=== PATIENT | male | born 1960 | race Caucasian/White ===

== ENCOUNTER 2017-05-25 23:09 | Inpatient (IN) | payer MEDICARE, MEDICAID ==
[~2017-05-25] VITALS: Ht 182.9 cm; Wt 112.3 kg
[~2017-05-25 23:09] MED LIST: BENZ1TAB10 PO
[2017-05-25 23:27] LABS: GLUCOSE,POINT OF CARE 118 MG/DL (70-110)
[2017-05-26] VITALS (7 sets, daily range): BP systolic 137–161; BP diastolic 77–92
[2017-05-26] LABS: BASOPHILS % (AUTO) 0.4 % (0.0-2.0); EOSINOPHILS % (AUTO) 0.8 % (1.0-6.0); HEMATOCRIT 42.5 % (41-53); HEMOGLOBIN 14.7 g/dL (13.5-17.5); LYMPHOCYTES # (AUTO) 1.6 K/uL (1.0-4.8); LYMPHOCYTES % (AUTO) 13.5 % (22.0-44.0); MEAN CORPUSCULAR HEMOGLOBIN 32.5 pg (26.0-34.0); MEAN CORPUSCULAR HGB CONC 34.6 G/dL (31.0-37.0); MEAN CORPUSCULAR VOLUME 94 fL (80-100); MONOCYTES # (AUTO) 0.8 K/uL (0.1-1.0); MONOCYTES % (AUTO) 6.4 % (2.0-9.0); NEUTROPHILS # (AUTO) 9.5 K/uL (1.8-7.7); NEUTROPHILS % (AUTO) 78.9 % (40.0-70.0); PLATELET COUNT (AUTO) 257 K/uL (150-450); RED BLOOD CELL COUNT(AUTO) 4.52 MIL/uL (4.50-5.90); RED CELL DISTRIBUTION WIDTH 13.3 % (11.5-14.5)
[2017-05-26 00:11] LABS: PROTHROMBIN TIME 10.7 SEC (9.4-11.6)
[2017-05-26 00:17] LABS: ANION GAP 11 mmol/L (8-16); CALCIUM, TOTAL 8.9 mg/dL (8.8-10.5); CARBON DIOXIDE 26 mmol/L (22-29); CHLORIDE 98 mmol/L (98-107); CREATININE 0.81 mg/dL (0.60-1.30); GLOMERULAR FILTR. RATE CALC > 60 mL/min (>60); POTASSIUM 4.1 mmol/L (3.5-5.1); SODIUM SERUM 135 mmol/L (136-145); UREA NITROGEN, BLOOD 8 mg/dL (7-18)
[2017-05-26 00:20] LABS: B-TYPE NATRIURETIC PEPTIDE 14 pg/mL (0-100)
[2017-05-26] MEDS ORDERED: 0.9% SODIUM CHLORIDE 10 ML SYRINGE IVP PRN (00:30)
[2017-05-26] MEDS ORDERED: ONDANSETRON HCL 4 MG/2 ML VIAL IVP PRN ×2 (00:30→12:15)
[2017-05-26] MEDS ORDERED: ACETAMINOPHEN 325 MG TABLET PO PRN ×2 (00:30→12:15)
[2017-05-26 00:42] LABS: ALANINE AMINOTRANSFERASE 25 U/L (12-78); ALBUMIN 3.9 g/dL (3.4-5.0); ASPARTATE AMINOTRANSFERASE 16 U/L (15-37); BILIRUBIN,TOTAL 0.4 mg/dL (0.1-1.0); CREATINE KINASE MB 1.1 ng/mL (0-5); CREATINE KINASE, TOTAL 81 U/L (39-308); TOTAL PROTEIN, SERUM 7.1 g/dL (6.4-8.2)
[2017-05-26] MEDS ORDERED: LORazepam 2 MG TABLET PO ONE (00:45)
[2017-05-26 01:57] LABS: ADD UA MICROSCOPIC NO; APPEARANCE,URINE CLEAR (CLEAR); GLUCOSE, URINE (UA) NEGATIVE (NEGATIVE); KETONES,URINE NEGATIVE (NEGATIVE); LEUKOCYTE ESTERASE ,URINE NEGATIVE (NEGATIVE); OCCULT BLOOD,URINE NEGATIVE (NEGATIVE); PH,URINE 6.5 (5.0-8.0); PROTEIN,URINE NEGATIVE (NEGATIVE)
[2017-05-26] MEDS: NITROGLYCERIN 2% (1 GM=INCH) PACKET TP SCH ×3 (04:00→12:38)
[2017-05-26] MEDS ORDERED: NITROGLYCERIN 2% (1 GM=INCH) PACKET TP ONE (04:00)
[2017-05-26] MEDS ORDERED: DOBUTamine HCL/D5W 500 MG/250 ML IV BAG [STRESS LAB ONLY] IV ONE (12:15)
[2017-05-26] MEDS ORDERED: NITROGLYCERIN 2% (1 GM=INCH) PACKET TP PRN (12:15)
[2017-05-26] MEDS: OXYGEN THERAPY IH SCH ×2 (12:15→20:00)
[2017-05-26] MEDS: BENZTROPINE MESYLATE 1 MG TABLET PO SCH ×2 (15:41→20:56)
[2017-05-26] MEDS: HEPARIN SODIUM,PORCINE 5,000 UNITS/ML VIAL SQ SCH (15:41)
[2017-05-27] VITALS (7 sets, daily range): BP systolic 131–156; BP diastolic 67–90
[2017-05-27] MEDS: HEPARIN SODIUM,PORCINE 5,000 UNITS/ML VIAL SQ SCH ×3 (01:25→16:07)
[2017-05-27 06:40] LABS: ALANINE AMINOTRANSFERASE 26 U/L (12-78); ALBUMIN 3.5 g/dL (3.4-5.0); ANION GAP 8 mmol/L (8-16); ASPARTATE AMINOTRANSFERASE 24 U/L (15-37); BILIRUBIN,TOTAL 0.5 mg/dL (0.1-1.0); CALCIUM, TOTAL 9.2 mg/dL (8.8-10.5); CARBON DIOXIDE 26 mmol/L (22-29); CHLORIDE 102 mmol/L (98-107); CHOL/HDL RATIO 2.9 (4.2-7.3); CREATININE 0.71 mg/dL (0.60-1.30); GLOMERULAR FILTR. RATE CALC > 60 mL/min (>60); POTASSIUM 4.3 mmol/L (3.5-5.1); SODIUM SERUM 136 mmol/L (136-145); TOTAL PROTEIN, SERUM 6.7 g/dL (6.4-8.2); UREA NITROGEN, BLOOD 9 mg/dL (7-18)
[2017-05-27 06:43] LABS: BASOPHILS % (AUTO) 0.4 % (0.0-2.0); EOSINOPHILS % (AUTO) 1.4 % (1.0-6.0); HEMATOCRIT 43.1 % (41-53); HEMOGLOBIN 14.9 g/dL (13.5-17.5); LYMPHOCYTES # (AUTO) 2.4 K/uL (1.0-4.8); LYMPHOCYTES % (AUTO) 27.1 % (22.0-44.0); MEAN CORPUSCULAR HEMOGLOBIN 32.4 pg (26.0-34.0); MEAN CORPUSCULAR HGB CONC 34.5 G/dL (31.0-37.0); MEAN CORPUSCULAR VOLUME 94 fL (80-100); MONOCYTES % (AUTO) 11.5 % (2.0-9.0); NEUTROPHILS # (AUTO) 5.3 K/uL (1.8-7.7); NEUTROPHILS % (AUTO) 59.6 % (40.0-70.0); PLATELET COUNT (AUTO) 243 K/uL (150-450); RED CELL DISTRIBUTION WIDTH 13.8 % (11.5-14.5); WHITE BLOOD COUNT (AUTO) 8.9 K/uL (4.5-11.0)
[2017-05-27] MEDS ORDERED: ASPIRIN 81 MG CHEWABLE TABLET PO SCH (09:00)
[2017-05-27] MEDS ORDERED: AmLODIPine BESYLATE 10 MG TABLET PO SCH (09:00)
[2017-05-27] MEDS ORDERED: SESTAMIBI TC99M/UD ISOTOPE 1 EA INJ INJ ONE (09:30)
[2017-05-27] MEDS ORDERED: REGADENOSON 0.4 MG/5 ML PF SYRINGE IVP ONE ×2 (09:33→18:44)
[2017-05-27] MEDS: OXYGEN THERAPY IH SCH (10:03)
[2017-05-27] MEDS: BENZTROPINE MESYLATE 1 MG TABLET PO SCH ×2 (10:03→16:07)
[2017-05-27] MEDS ORDERED: AMLO-512 PO (14:31)
[2017-05-27] MEDS ORDERED: ASPI-1093 PO (14:31)
== END 2017-05-27 18:45 | disposition home or self-care (01) | DRG 313 ==
LOC: EMS 23:11 → 5N 05-26 01:28
PROVIDERS: ADMIT Family Medicine; ATTEND Family Medicine
DX: R07.89 Other chest pain (principal); F20.9 Schizophrenia, unspecified; J44.9 Chronic obstructive pulmonary disease, unspecified; F41.9 Anxiety disorder, unspecified; I10 Essential (primary) hypertension
CPT/HCPCS: 78452; 82962; 83735; 93005; 93017; 93306; 99285; A9500; J1644; J2785

== ENCOUNTER 2020-02-21 03:55 | Emergency (ER) | payer MEDICARE, MEDICAID ==
[~2020-02-21] VITALS: Ht 182.9 cm; Wt 109.1 kg
[~2020-02-21 03:55] MED LIST changes: +AMLO10TA7 PO; +ASPI-1111 PO
[2020-02-21] MEDS ORDERED: VALS80TA2 PO (04:19)
[2020-02-21] MEDS ORDERED: OLAN7.5T2 PO (04:19)
[2020-02-21] MEDS ORDERED: HALO10 PO (04:19)
[2020-02-21 04:51] LABS: ANION GAP 10 mmol/L (8-16); BASOPHILS % (AUTO) 0.2 % (0.0-2.0); CALCIUM, TOTAL 8.8 mg/dL (8.8-10.5); CARBON DIOXIDE 26 mmol/L (22-29); CHLORIDE 99 mmol/L (98-107); CREATININE 0.73 mg/dL (0.60-1.30); EOSINOPHILS % (AUTO) 0.8 % (1.0-6.0); GLOMERULAR FILTR. RATE CALC > 60 mL/min (>60); GLUCOSE,RANDOM 126 mg/dL (70-110); HEMATOCRIT 44.8 % (41-53); HEMOGLOBIN 15.2 g/dL (13.5-17.5); LYMPHOCYTES # (AUTO) 2.1 K/uL (1.0-4.8); LYMPHOCYTES % (AUTO) 18.3 % (22.0-44.0); MEAN CORPUSCULAR HEMOGLOBIN 32.5 pg (26.0-34.0); MEAN CORPUSCULAR HGB CONC 33.9 G/dL (31.0-37.0); MEAN CORPUSCULAR VOLUME 96 fL (80-100); MONOCYTES % (AUTO) 8.5 % (2.0-9.0); NEUTROPHILS # (AUTO) 8.3 K/uL (1.8-7.7); NEUTROPHILS % (AUTO) 72.2 % (40.0-70.0); PLATELET COUNT (AUTO) 225 K/uL (150-450); POTASSIUM 4.1 mmol/L (3.5-5.1); RED BLOOD CELL COUNT(AUTO) 4.67 MIL/uL (4.50-5.90); SODIUM SERUM 135 mmol/L (136-145); UREA NITROGEN, BLOOD 8 mg/dL (7-18)
[2020-02-21 04:56] LABS: ALANINE AMINOTRANSFERASE 30 U/L (12-78); ALBUMIN 3.8 g/dL (3.4-5.0); ALKALINE PHOSPHATASE 76 U/L (46-116); ASPARTATE AMINOTRANSFERASE 16 U/L (15-37); BILIRUBIN,TOTAL 0.5 mg/dL (0.1-1.0)
[2020-02-21 05:11] LABS: TOTAL PROTEIN, SERUM 7.1 g/dL (6.4-8.2)
[2020-02-21 05:13] LABS: AMPHET/METH SCREEN,URINE NEGATIVE (NEGATIVE); BARBITURATE SCREEN, URINE NEGATIVE (NEGATIVE); BENZODIAZEPINES SCREEN,URINE NEGATIVE (NEGATIVE); CANNABINOID SCREEN,URINE NEGATIVE (NEGATIVE); COCAINE SCREEN,URINE NEGATIVE (NEGATIVE); METHADONE SCREEN, URINE NEGATIVE (NEGATIVE); OPIATE SCREEN,URINE NEGATIVE (NEGATIVE)
[2020-02-21 05:14] LABS: PHENCYCLIDINE SCREEN,URINE NEGATIVE (NEGATIVE)
[2020-02-21 06:30] VITALS: BP 167/72
== END 2020-02-21 06:50 | disposition home or self-care (01) ==
LOC: EMS 03:56
DX: J02.9 Acute pharyngitis, unspecified (principal); F20.9 Schizophrenia, unspecified; F17.210 Nicotine dependence, cigarettes, uncomplicated; I10 Essential (primary) hypertension
CPT/HCPCS: 36415; 70360; 70491; 74022; 80053; 80307; 85025; 99285; 99406; G0480

== ENCOUNTER 2020-06-08 10:27 | Emergency (ER) | payer MEDICARE, MEDICAID ==
[~2020-06-08] VITALS: Ht 182.9 cm; Wt 101.8 kg
[~2020-06-08 10:27] MED LIST changes: -AMLO10TA7 PO; -ASPI-1111 PO; -BENZ1TAB10 PO; +HALO10 PO; +OLAN7.5T2 PO; +VALS80TA2 PO
[2020-06-08 10:55] LABS: BASOPHILS % (AUTO) 0.4 % (0.0-2.0); EOSINOPHILS % (AUTO) 0.1 % (1.0-6.0); HEMATOCRIT 41.1 % (41-53); HEMOGLOBIN 14.5 g/dL (13.5-17.5); LYMPHOCYTES # (AUTO) 0.9 K/uL (1.0-4.8); LYMPHOCYTES % (AUTO) 9.7 % (22.0-44.0); MEAN CORPUSCULAR HEMOGLOBIN 33.4 pg (26.0-34.0); MEAN CORPUSCULAR HGB CONC 35.2 G/dL (31.0-37.0); MEAN CORPUSCULAR VOLUME 95 fL (80-100); MONOCYTES # (AUTO) 0.3 K/uL (0.1-1.0); MONOCYTES % (AUTO) 3.7 % (2.0-9.0); NEUTROPHILS # (AUTO) 8.1 K/uL (1.8-7.7); PLATELET COUNT (AUTO) 294 K/uL (150-450); RED BLOOD CELL COUNT(AUTO) 4.33 MIL/uL (4.50-5.90); RED CELL DISTRIBUTION WIDTH 13.8 % (11.5-14.5)
[2020-06-08 10:56] LABS: APPEARANCE,URINE CLEAR (CLEAR); BILIRUBIN,URINE NEGATIVE (NEGATIVE); GLUCOSE, URINE (UA) NEGATIVE (NEGATIVE); KETONES,URINE NEGATIVE (NEGATIVE); LEUKOCYTE ESTERASE ,URINE NEGATIVE (NEGATIVE); NITRATE,URINE NEGATIVE (NEGATIVE); OCCULT BLOOD,URINE NEGATIVE (NEGATIVE); PROTEIN,URINE NEGATIVE (NEGATIVE); UROBILINOGEN,URINE 0.2 mg/dL (<=1.0)
[2020-06-08] MEDS ORDERED: TRIH2TAB3 PO (10:56)
[2020-06-08] MEDS ORDERED: BENZ0.5T44 PO (10:56)
[2020-06-08 10:57] LABS: NEUTROPHILS % (AUTO) 86.1 % (40.0-70.0)
[2020-06-08 11:08] LABS: PROTHROMBIN TIME 10.1 SEC (9.4-11.6)
[2020-06-08 11:21] LABS: B-TYPE NATRIURETIC PEPTIDE 51 pg/mL (0-100)
[2020-06-08 11:32] LABS: ALANINE AMINOTRANSFERASE 31 U/L (12-78); ALBUMIN 4.1 g/dL (3.4-5.0); ALKALINE PHOSPHATASE 76 U/L (46-116); ANION GAP 9 mmol/L (8-16); ASPARTATE AMINOTRANSFERASE 19 U/L (15-37); BILIRUBIN,TOTAL 0.4 mg/dL (0.1-1.0); CARBON DIOXIDE 29 mmol/L (22-29); CHLORIDE 89 mmol/L (98-107); CREATINE KINASE, TOTAL ONLY 88 U/L (39-308); CREATININE 0.76 mg/dL (0.60-1.30); GLOMERULAR FILTR. RATE CALC > 60 mL/min (>60); GLUCOSE,RANDOM 154 mg/dL (70-110); POTASSIUM 4.2 mmol/L (3.5-5.1); SODIUM SERUM 127 mmol/L (136-145); TOTAL PROTEIN, SERUM 7.5 g/dL (6.4-8.2); UREA NITROGEN, BLOOD 5 mg/dL (7-18)
[2020-06-08 11:41] LABS: AMPHET/METH SCREEN,URINE NEGATIVE (NEGATIVE); BARBITURATE SCREEN, URINE NEGATIVE (NEGATIVE); BENZODIAZEPINES SCREEN,URINE NEGATIVE (NEGATIVE); CANNABINOID SCREEN,URINE NEGATIVE (NEGATIVE); COCAINE SCREEN,URINE NEGATIVE (NEGATIVE); METHADONE SCREEN, URINE NEGATIVE (NEGATIVE); OPIATE SCREEN,URINE NEGATIVE (NEGATIVE); PHENCYCLIDINE SCREEN,URINE NEGATIVE (NEGATIVE)
[2020-06-08] MEDS ORDERED: VALSARTAN 80 MG TABLET PO ONE (11:45)
[2020-06-08] MEDS ORDERED: HydrALAZINE HCL 20 MG/ML VIAL IVP ONE (11:45)
[2020-06-08] MEDS ORDERED: HALOPERIDOL 5 MG TABLET PO ONE (12:30)
[2020-06-08 13:24] VITALS: BP 168/78
== END 2020-06-08 13:26 | disposition home or self-care (01) ==
LOC: EMS 10:29
DX: F41.9 Anxiety disorder, unspecified (principal); I10 Essential (primary) hypertension; R06.02 Shortness of breath; F20.9 Schizophrenia, unspecified; F17.210 Nicotine dependence, cigarettes, uncomplicated; Z79.899 Other long term (current) drug therapy
CPT/HCPCS: 36415; 71045; 80053; 80307; 81003; 82550; 83880; 84484; 85025; 85610; 85730; 93005; 96374; 99285; G0480; J0360

== ENCOUNTER 2021-06-26 20:53 | Inpatient (IN) | payer MEDICARE, MEDICAID ==
[~2021-06-26] VITALS: Ht 180.3 cm; Wt 96.2 kg
[~2021-06-26 20:53] MED LIST changes: +AMLO-258 PO; +BENZ0.5T44 PO; +NACL1 PO; -OLAN7.5T2 PO; +OLAN7.5T22 PO; +TRIH2TAB3 PO
[2021-06-26] MEDS ORDERED: ZOLPIDEM TARTRATE 10 MG TABLET PO PRN (22:45)
[2021-06-26] MEDS ORDERED: HALOPERIDOL 5 MG TABLET PO PRN (22:45)
[2021-06-26 22:50] LABS: AMPHET/METH SCREEN,URINE NEGATIVE (NEGATIVE); BARBITURATE SCREEN, URINE NEGATIVE (NEGATIVE); BENZODIAZEPINES SCREEN,URINE NEGATIVE (NEGATIVE); CANNABINOID SCREEN,URINE NEGATIVE (NEGATIVE); COCAINE SCREEN,URINE NEGATIVE (NEGATIVE); METHADONE SCREEN, URINE NEGATIVE (NEGATIVE); OPIATE SCREEN,URINE NEGATIVE (NEGATIVE)
[2021-06-26 22:51] LABS: PHENCYCLIDINE SCREEN,URINE NEGATIVE (NEGATIVE)
[2021-06-26 23:22] LABS: COVID AG,FIA SOURCE NASOPHARYNGEAL
[2021-06-27 00:38] VITALS: BP 144/85
[2021-06-27] MEDS ORDERED: LOPERAMIDE HCL 2 MG CAPSULE PO PRN (06:45)
[2021-06-27] MEDS ORDERED: PNEUMOCOCCAL VACCINE POLYVALENT 0.5 ML VIAL [PPSV23] IM. ONE (06:45)
[2021-06-27] MEDS ORDERED: ALBUTEROL SULFATE HFA 90 MCG/PUFF 8 GM INHALER IH PRN (06:45)
[2021-06-27] MEDS ORDERED: ONDANSETRON HCL 4 MG TABLET PO PRN (06:45)
[2021-06-27] MEDS ORDERED: CloNIDine HCL 0.1 MG TABLET PO PRN (06:45)
[2021-06-27] MEDS ORDERED: GuaiFENesin/D-METHORPHAN [SUGAR-FREE] 200-20MG/10 ML SYRUP UDCUP PO PRN (06:45)
[2021-06-27] MEDS ORDERED: PETROLATUM,WHITE 28 GM JELLY TP PRN (06:45)
[2021-06-27] MEDS ORDERED: DOCUSATE SODIUM 100 MG CAPSULE PO PRN (06:45)
[2021-06-27] MEDS ORDERED: NICOTINE 14 MG/24 HOUR PATCH TD PRN (06:45)
[2021-06-27] MEDS: VALSARTAN 80 MG TABLET PO SCH (09:00)
[2021-06-27] MEDS: SODIUM CHLORIDE 1 GM TABLET PO SCH ×2 (09:13→16:23)
[2021-06-27] MEDS: AmLODIPine BESYLATE 10 MG TABLET PO SCH (09:14)
[2021-06-27] MEDS: BENZTROPINE MESYLATE 2 MG TABLET PO SCH (16:23)
[2021-06-27 16:26] VITALS: BP 158/88
[2021-06-27] MEDS: ACETAMINOPHEN 325 MG TABLET PO PRN (17:58)
[2021-06-27] MEDS: IBUPROFEN 400 MG TABLET PO PRN (22:53)
[2021-06-28 02:58] VITALS: BP 151/82
[2021-06-28] MEDS: VALSARTAN 80 MG TABLET PO SCH ×2 (09:00→09:43)
[2021-06-28 09:43] VITALS: BP 149/80
[2021-06-28] MEDS: AmLODIPine BESYLATE 10 MG TABLET PO SCH (09:44)
[2021-06-28] MEDS: OLANZapine 10 MG TABLET PO SCH (09:44)
[2021-06-28] MEDS: SODIUM CHLORIDE 1 GM TABLET PO SCH ×2 (09:44→17:25)
[2021-06-28] MEDS: BENZTROPINE MESYLATE 2 MG TABLET PO SCH ×2 (09:44→17:25)
[2021-06-28] MEDS: ACETAMINOPHEN 325 MG TABLET PO PRN ×2 (09:54→21:09)
[2021-06-28 16:28] VITALS: BP 157/87
[2021-06-28 21:09] VITALS: BP 149/84
[2021-06-28] MEDS: MAGNESIUM HYDROXIDE SUSPENSION 30 ML UDCUP PO PRN (21:46)
[2021-06-29] MEDS: IBUPROFEN 400 MG TABLET PO PRN ×2 (00:39→12:55)
[2021-06-29 08:32] VITALS: BP 125/77
[2021-06-29] MEDS: ACETAMINOPHEN 325 MG TABLET PO PRN ×2 (08:47→18:00)
[2021-06-29] MEDS: SODIUM CHLORIDE 1 GM TABLET PO SCH ×2 (08:47→17:03)
[2021-06-29] MEDS: BENZTROPINE MESYLATE 2 MG TABLET PO SCH ×2 (08:47→17:03)
[2021-06-29] MEDS: OLANZapine 10 MG TABLET PO SCH (08:48)
[2021-06-29] MEDS: AmLODIPine BESYLATE 10 MG TABLET PO SCH (09:00)
[2021-06-29] MEDS: VALSARTAN 80 MG TABLET PO SCH (09:00)
[2021-06-29] MEDS: MAG HYDROX/AL HYDROX/SIMETH ES 30 ML SUSPENSION UDCUP PO PRN (10:05)
[2021-06-29 16:19] VITALS: BP 130/80
[2021-06-29 18:00] VITALS: BP 134/77
[2021-06-29] MEDS: MAGNESIUM HYDROXIDE SUSPENSION 30 ML UDCUP PO PRN (21:02)
[2021-06-29] MEDS: LORazepam 2 MG TABLET PO PRN (21:02)
[2021-06-30 08:20] VITALS: BP 156/85
[2021-06-30] MEDS: AmLODIPine BESYLATE 10 MG TABLET PO SCH (10:01)
[2021-06-30] MEDS: OLANZapine 10 MG TABLET PO SCH (10:01)
[2021-06-30] MEDS: BENZTROPINE MESYLATE 2 MG TABLET PO SCH ×2 (10:01→16:01)
[2021-06-30] MEDS: SODIUM CHLORIDE 1 GM TABLET PO SCH ×2 (10:02→16:01)
[2021-06-30] MEDS: VALSARTAN 80 MG TABLET PO SCH (10:02)
[2021-06-30] MEDS: ACETAMINOPHEN 325 MG TABLET PO PRN ×2 (10:48→20:08)
[2021-06-30 10:50] VITALS: BP 156/85
[2021-06-30 11:49] VITALS: BP 156/88
[2021-06-30 16:24] VITALS: BP 150/64
[2021-07-01 02:58] VITALS: BP 146/77
[2021-07-01] MEDS: MAG HYDROX/AL HYDROX/SIMETH ES 30 ML SUSPENSION UDCUP PO PRN (02:58)
[2021-07-01] MEDS: SODIUM CHLORIDE 1 GM TABLET PO SCH ×2 (08:02→16:16)
[2021-07-01] MEDS: BENZTROPINE MESYLATE 2 MG TABLET PO SCH ×2 (08:02→16:16)
[2021-07-01] MEDS: OLANZapine 10 MG TABLET PO SCH (08:02)
[2021-07-01] MEDS: AmLODIPine BESYLATE 10 MG TABLET PO SCH (08:02)
[2021-07-01] MEDS: VALSARTAN 80 MG TABLET PO SCH (09:00)
[2021-07-01] MEDS: MAGNESIUM HYDROXIDE SUSPENSION 30 ML UDCUP PO PRN (09:05)
[2021-07-01 09:41] VITALS: BP 158/77
[2021-07-01 16:23] VITALS: BP 140/80
[2021-07-01] MEDS: ACETAMINOPHEN 325 MG TABLET PO PRN (18:49)
[2021-07-02 08:37] VITALS: BP 160/90
[2021-07-02] MEDS: VALSARTAN 80 MG TABLET PO SCH (09:00)
[2021-07-02] MEDS: OLANZapine 7.5 MG TABLET PO SCH (09:00)
[2021-07-02] MEDS: SODIUM CHLORIDE 1 GM TABLET PO SCH ×2 (10:19→16:06)
[2021-07-02] MEDS: BENZTROPINE MESYLATE 2 MG TABLET PO SCH ×2 (10:19→16:06)
[2021-07-02] MEDS: AmLODIPine BESYLATE 10 MG TABLET PO SCH (10:20)
[2021-07-02 14:15] LABS: COVID AG,FIA SOURCE NASAL SWAB
[2021-07-02 16:10] VITALS: BP 140/75
[2021-07-02] MEDS: ACETAMINOPHEN 325 MG TABLET PO PRN (17:05)
[2021-07-03 08:00] VITALS: BP 139/89
[2021-07-03] MEDS: VALSARTAN 80 MG TABLET PO SCH ×2 (08:20→09:00)
[2021-07-03] MEDS: OLANZapine 7.5 MG TABLET PO SCH (08:20)
[2021-07-03] MEDS: SODIUM CHLORIDE 1 GM TABLET PO SCH ×2 (08:20→16:25)
[2021-07-03] MEDS: BENZTROPINE MESYLATE 2 MG TABLET PO SCH ×2 (08:20→16:25)
[2021-07-03] MEDS: AmLODIPine BESYLATE 10 MG TABLET PO SCH ×2 (08:20→09:00)
[2021-07-03] MEDS ORDERED: OLANZapine 7.5 MG TABLET PO ONE (11:00)
[2021-07-03 16:10] VITALS: BP 130/80
[2021-07-04 05:10] VITALS: BP 122/78
[2021-07-04] MEDS: OLANZapine 5 MG RAPDIS TABLET PO SCH (08:54)
[2021-07-04] MEDS: AmLODIPine BESYLATE 10 MG TABLET PO SCH (09:00)
[2021-07-04] MEDS: VALSARTAN 80 MG TABLET PO SCH (09:00)
[2021-07-04] MEDS: BENZTROPINE MESYLATE 2 MG TABLET PO SCH ×2 (09:00→16:11)
[2021-07-04] MEDS: SODIUM CHLORIDE 1 GM TABLET PO SCH ×2 (09:00→16:11)
[2021-07-04 09:45] VITALS: BP 158/74
[2021-07-04] MEDS: ACETAMINOPHEN 325 MG TABLET PO PRN (14:48)
[2021-07-04 16:44] VITALS: BP 168/82
[2021-07-05 08:25] VITALS: BP 167/93
[2021-07-05] MEDS: SODIUM CHLORIDE 1 GM TABLET PO SCH ×3 (09:00→16:48)
[2021-07-05] MEDS: VALSARTAN 80 MG TABLET PO SCH ×2 (09:00→10:44)
[2021-07-05] MEDS: BENZTROPINE MESYLATE 2 MG TABLET PO SCH ×2 (10:43→16:48)
[2021-07-05] MEDS: OLANZapine 5 MG RAPDIS TABLET PO SCH (10:43)
[2021-07-05] MEDS: AmLODIPine BESYLATE 10 MG TABLET PO SCH (10:44)
[2021-07-05 16:16] VITALS: BP 142/98
[2021-07-05] MEDS: ACETAMINOPHEN 325 MG TABLET PO PRN (20:05)
[2021-07-06 08:29] VITALS: BP 150/78
[2021-07-06] MEDS: VALSARTAN 80 MG TABLET PO SCH (09:00)
[2021-07-06] MEDS: BENZTROPINE MESYLATE 2 MG TABLET PO SCH ×2 (09:03→16:34)
[2021-07-06] MEDS: AmLODIPine BESYLATE 10 MG TABLET PO SCH (09:04)
[2021-07-06] MEDS: OLANZapine 5 MG RAPDIS TABLET PO SCH (09:05)
[2021-07-06] MEDS: SODIUM CHLORIDE 1 GM TABLET PO SCH ×2 (09:05→16:34)
[2021-07-06 16:05] VITALS: BP 150/78
[2021-07-06 20:28] VITALS: BP 124/70
[2021-07-06] MEDS: ACETAMINOPHEN 325 MG TABLET PO PRN (20:58)
[2021-07-07] MEDS: BENZTROPINE MESYLATE 2 MG TABLET PO SCH ×2 (08:57→16:22)
[2021-07-07] MEDS: SODIUM CHLORIDE 1 GM TABLET PO SCH ×2 (08:57→16:21)
[2021-07-07] MEDS: OLANZapine 5 MG RAPDIS TABLET PO SCH (08:58)
[2021-07-07] MEDS: VALSARTAN 80 MG TABLET PO SCH (09:00)
[2021-07-07] MEDS: AmLODIPine BESYLATE 10 MG TABLET PO SCH (09:00)
[2021-07-07 09:30] VITALS: BP 161/77
[2021-07-07] MEDS: IBUPROFEN 400 MG TABLET PO PRN (09:32)
[2021-07-07 10:30] VITALS: BP 159/90
[2021-07-07 19:57] VITALS: BP 138/72
[2021-07-07] MEDS: ACETAMINOPHEN 325 MG TABLET PO PRN (19:57)
[2021-07-08 04:14] VITALS: BP 130/87
[2021-07-08] MEDS: ACETAMINOPHEN 325 MG TABLET PO PRN ×2 (04:14→19:47)
[2021-07-08] MEDS: AmLODIPine BESYLATE 10 MG TABLET PO SCH (09:00)
[2021-07-08] MEDS: VALSARTAN 80 MG TABLET PO SCH (09:00)
[2021-07-08] MEDS: SODIUM CHLORIDE 1 GM TABLET PO SCH ×2 (09:33→16:01)
[2021-07-08] MEDS: BENZTROPINE MESYLATE 2 MG TABLET PO SCH ×2 (09:34→16:01)
[2021-07-08] MEDS: OLANZapine 5 MG RAPDIS TABLET PO SCH (09:34)
[2021-07-09] MEDS: IBUPROFEN 400 MG TABLET PO PRN (05:15)
[2021-07-09 08:00] VITALS: BP 133/75
[2021-07-09] MEDS: OLANZapine 5 MG RAPDIS TABLET PO SCH (08:37)
[2021-07-09] MEDS: SODIUM CHLORIDE 1 GM TABLET PO SCH ×2 (08:38→17:23)
[2021-07-09] MEDS: BENZTROPINE MESYLATE 2 MG TABLET PO SCH ×2 (08:38→17:23)
[2021-07-09] MEDS: VALSARTAN 80 MG TABLET PO SCH (08:42)
[2021-07-09] MEDS: AmLODIPine BESYLATE 10 MG TABLET PO SCH (08:43)
[2021-07-09] MEDS: ACETAMINOPHEN 325 MG TABLET PO PRN ×2 (10:26→19:34)
[2021-07-09 16:04] VITALS: BP 148/88
[2021-07-09 19:35] VITALS: BP 139/82
[2021-07-09 20:34] VITALS: BP 138/85
[2021-07-10] MEDS: SODIUM CHLORIDE 1 GM TABLET PO SCH ×2 (08:44→16:23)
[2021-07-10] MEDS: AmLODIPine BESYLATE 10 MG TABLET PO SCH ×2 (08:44→08:47)
[2021-07-10] MEDS: OLANZapine 5 MG RAPDIS TABLET PO SCH (08:44)
[2021-07-10] MEDS: BENZTROPINE MESYLATE 2 MG TABLET PO SCH ×2 (08:44→16:23)
[2021-07-10] MEDS: VALSARTAN 80 MG TABLET PO SCH (08:45)
[2021-07-10 15:57] VITALS: BP 142/87
[2021-07-10] MEDS: ACETAMINOPHEN 325 MG TABLET PO PRN (15:57)
[2021-07-11 00:15] VITALS: BP 135/79
[2021-07-11] MEDS: ACETAMINOPHEN 325 MG TABLET PO PRN ×2 (00:28→19:05)
[2021-07-11] MEDS: AmLODIPine BESYLATE 10 MG TABLET PO SCH (09:00)
[2021-07-11] MEDS: VALSARTAN 80 MG TABLET PO SCH (09:00)
[2021-07-11] MEDS: BENZTROPINE MESYLATE 2 MG TABLET PO SCH ×2 (09:32→16:22)
[2021-07-11] MEDS: SODIUM CHLORIDE 1 GM TABLET PO SCH ×2 (09:32→16:22)
[2021-07-11] MEDS: OLANZapine 5 MG RAPDIS TABLET PO SCH (09:33)
[2021-07-11 12:00] LABS: COVID AG,FIA SOURCE NASAL SWAB
[2021-07-11 13:35] VITALS: BP 129/76
[2021-07-11] MEDS: IBUPROFEN 400 MG TABLET PO PRN (13:35)
[2021-07-11] MEDS: MAG HYDROX/AL HYDROX/SIMETH ES 30 ML SUSPENSION UDCUP PO PRN (23:06)
[2021-07-12 03:09] VITALS: BP 150/85
[2021-07-12 06:22] VITALS: BP 148/78
[2021-07-12] MEDS: BENZTROPINE MESYLATE 2 MG TABLET PO SCH ×2 (08:12→17:05)
[2021-07-12] MEDS: SODIUM CHLORIDE 1 GM TABLET PO SCH ×2 (08:12→17:05)
[2021-07-12] MEDS: ACETAMINOPHEN 325 MG TABLET PO PRN ×2 (08:12→18:04)
[2021-07-12] MEDS: OLANZapine 5 MG RAPDIS TABLET PO SCH (08:13)
[2021-07-12] MEDS: AmLODIPine BESYLATE 10 MG TABLET PO SCH (08:16)
[2021-07-12] MEDS: VALSARTAN 80 MG TABLET PO SCH (08:16)
[2021-07-12 18:04] VITALS: BP 149/77
[2021-07-12] MEDS: LORazepam 2 MG TABLET PO PRN (20:59)
[2021-07-13] MEDS: ACETAMINOPHEN 325 MG TABLET PO PRN ×3 (02:06→22:14)
[2021-07-13 08:01] VITALS: BP 125/87
[2021-07-13] MEDS: AmLODIPine BESYLATE 10 MG TABLET PO SCH (09:00)
[2021-07-13] MEDS: VALSARTAN 80 MG TABLET PO SCH (09:00)
[2021-07-13] MEDS: BENZTROPINE MESYLATE 2 MG TABLET PO SCH ×2 (09:17→16:52)
[2021-07-13] MEDS: OLANZapine 5 MG RAPDIS TABLET PO SCH (09:17)
[2021-07-13] MEDS: SODIUM CHLORIDE 1 GM TABLET PO SCH ×2 (09:17→16:52)
[2021-07-13 14:04] VITALS: BP 141/76
[2021-07-13 22:14] VITALS: BP 145/77
[2021-07-13] MEDS: MAG HYDROX/AL HYDROX/SIMETH ES 30 ML SUSPENSION UDCUP PO PRN (23:36)
[2021-07-14] MEDS: OLANZapine 5 MG RAPDIS TABLET PO SCH (08:36)
[2021-07-14] MEDS: SODIUM CHLORIDE 1 GM TABLET PO SCH ×2 (08:36→17:13)
[2021-07-14] MEDS: BENZTROPINE MESYLATE 2 MG TABLET PO SCH ×2 (08:37→17:13)
[2021-07-14] MEDS: VALSARTAN 80 MG TABLET PO SCH (08:38)
[2021-07-14] MEDS: AmLODIPine BESYLATE 10 MG TABLET PO SCH (08:39)
[2021-07-14] MEDS: ACETAMINOPHEN 325 MG TABLET PO PRN ×2 (14:20→22:36)
[2021-07-14 14:26] VITALS: BP 163/103
[2021-07-14 15:24] VITALS: BP 154/93
[2021-07-14 16:11] VITALS: BP 153/93
[2021-07-14 22:36] VITALS: BP 149/89
[2021-07-15] MEDS: OLANZapine 5 MG RAPDIS TABLET PO SCH (08:05)
[2021-07-15] MEDS: BENZTROPINE MESYLATE 2 MG TABLET PO SCH ×2 (08:05→16:03)
[2021-07-15] MEDS: SODIUM CHLORIDE 1 GM TABLET PO SCH ×2 (08:05→16:02)
[2021-07-15] MEDS: VALSARTAN 80 MG TABLET PO SCH (08:06)
[2021-07-15] MEDS: AmLODIPine BESYLATE 10 MG TABLET PO SCH (08:06)
[2021-07-15] MEDS: ACETAMINOPHEN 325 MG TABLET PO PRN ×2 (10:52→21:02)
[2021-07-15 10:54] VITALS: BP 146/102
[2021-07-15 11:52] VITALS: BP 173/92
[2021-07-16 00:40] VITALS: BP 172/98
[2021-07-16] MEDS: IBUPROFEN 400 MG TABLET PO PRN (03:28)
[2021-07-16 03:41] VITALS: BP 136/89
[2021-07-16 08:00] VITALS: BP 133/86
[2021-07-16] MEDS: BENZTROPINE MESYLATE 2 MG TABLET PO SCH (08:01)
[2021-07-16] MEDS: SODIUM CHLORIDE 1 GM TABLET PO SCH (08:01)
[2021-07-16] MEDS: OLANZapine 5 MG RAPDIS TABLET PO SCH (08:02)
[2021-07-16] MEDS: ACETAMINOPHEN 325 MG TABLET PO PRN (08:03)
[2021-07-16] MEDS: VALSARTAN 80 MG TABLET PO SCH (08:07)
[2021-07-16] MEDS: AmLODIPine BESYLATE 10 MG TABLET PO SCH (08:07)
[2021-07-16] MEDS ORDERED: HydrALAZINE HCL 10 MG TABLET PO SCH (09:00)
[2021-07-16] MEDS ORDERED: AMLO-258 PO (10:26)
[2021-07-16] MEDS ORDERED: VALS80TA2 PO (10:27)
[2021-07-16] MEDS ORDERED: NACL1 PO (10:27)
[2021-07-16] MEDS ORDERED: HYDR10TA31 PO (10:28)
[2021-07-16] MEDS ORDERED: OLAN5TAB94 PO (10:29)
== END 2021-07-16 16:45 | disposition home or self-care (01) | DRG 885 ==
LOC: EMS 20:56 → 3EX 06-27 00:35
PROVIDERS: ADMIT Psychiatry & Neurology Child & Adolescent Psychiatry; ATTEND Psychiatry & Neurology Child & Adolescent Psychiatry
DX: F20.0 Paranoid schizophrenia (principal); I10 Essential (primary) hypertension; F17.210 Nicotine dependence, cigarettes, uncomplicated; Z79.899 Other long term (current) drug therapy; Z20.822 Contact with and (suspected) exposure to COVID-19; Z59.0 Homelessness; Z91.83 Wandering in diseases classified elsewhere; Z88.8 Allergy status to other drugs, medicaments and biological substances
CPT/HCPCS: 99285; G0378